=== PATIENT | male | born 1965 | race Caucasian/White ===

== ENCOUNTER 2018-03-13 07:49 | Emergency (ER) | payer OTHER ==
[2018-03-13 08:06] VITALS: BP 117/86
--- NOTE | 2018-03-13 08:25 | UC ---
Upper Extremity HPI - HPI Summary HPI Summary: ratcheting a vehicle when developed pain in the left biceps acutely. Pain has persisted despite resting overnight - History of Current Complaint Chief Complaint: UCUpperExtremity Stated Complaint: ARM INJURY Time Seen by Provider: 03/13/18 08:19 Hx Obtained From: Patient Onset/Duration: Sudden Onset Severity Initially: Moderate Severity Currently: Moderate Pain Intensity: 5 Character: Sharp Aggravating Factor(s): Movement, Extension - Allergies/Home Medications Allergies/Adverse Reactions: Allergies Allergy/AdvReac Type Severity Reaction Status Date / Time No Known Allergies Allergy Verified 03/13/18 08:03 PMH/Surg Hx/FS Hx/Imm Hx Previously Healthy: Yes - Surgical History Surgical History: None - Family History Known Family History: Positive: None - Social History Alcohol Use: None Substance Use Type: None Smoking Status (MU): Never Smoked Tobacco Review of Systems Constitutional: Negative Skin: Negative Eyes: Negative ENT: Negative Respiratory: Negative Cardiovascular: Negative Gastrointestinal: Negative Genitourinary: Negative Motor: Weakness - left arm Musculoskeletal: Other: - pain in the head of the biceps Is Patient Immunocompromised?: No All Other Systems Reviewed And Are Negative: Yes Physical Exam Triage Information Reviewed: Yes Appearance: Well-Appearing, Pain Distress Vital Signs: Initial Vital Signs Temp 37.0 C 03/13/18 08:00 Pulse 82 03/13/18 08:00 Resp 16 03/13/18 08:00 BP 117/86 03/13/18 08:00 Pulse Ox 99 03/13/18 08:00 Vital Signs Reviewed: Yes Musculoskeletal Exam: Other - distortion of the head of the biceps at the elbow , with pain , no ecchymosis Upper Extremity Course/Dx - Differential Dx/Diagnosis Provider Diagnoses: head of biceps muscle tear left Discharge - Sign-Out/Discharge Documenting (check all that apply): Patient Departure All imaging exams completed and their final reports reviewed: Yes - Discharge Plan Condition: Good Disposition: HOME Patient Education Materials: Tendon Rupture (ED) Referrals: Pj Cornejo MD [Primary Care Provider] - Gael Rodriguez MD [Medical Doctor] - Additional Instructions: ice elevation - Billing Disposition and Condition Condition: GOOD Disposition: Home
--- NOTE | 2018-03-13 08:43 | RAD ---
HISTORY: pain in the head of the biceps at the elbow COMPARISONS: None VIEWS: 2 , Frontal internal rotation and external rotation views of the left humerus FINDINGS: BONE DENSITY: Normal. BONES: There is no displaced fracture. JOINTS: There is no arthropathy. ALIGNMENT: There is no dislocation. SOFT TISSUES: Unremarkable. OTHER FINDINGS: None. IMPRESSION: NO ACUTE OSSEOUS INJURY. IF SYMPTOMS PERSIST, RECOMMEND REPEAT IMAGING.
== END 2018-03-13 09:04 | disposition home or self-care (01) ==
LOC: UCEAST 07:49
DX: S46.212A Strain of muscle, fascia and tendon of other parts of biceps, left arm, initial encounter (principal); X50.9XXA Other and unspecified overexertion or strenuous movements or postures, initial encounter; Y93.89 Activity, other specified; Y92.9 Unspecified place or not applicable
CPT/HCPCS: 99211; G0463

== ENCOUNTER 2019-07-06 18:09 | Emergency (ER) | payer BC, OTHER ==
--- OUTSIDE RECORDS SUMMARY | 2019-07-06 18:16 | XMS REPORT ---
:1965 Author Organization [facility] Care Team Providers Name Role Phone Jaylyn Petit Primary Care Physician Unavailable Allergies, Adverse Reactions, Alerts Allergy Code CodeSystem Reaction Severity Criticality Status Start Substance Date Moderate Medications Medication Medication Medication Start Stop Route Dose Status Fill Code CodeSystem Date Date Instructions RxNorm Relevant diagnostic tests/laboratory data Narrative No Information Procedures Procedure Code CodeSystem Target Date of Status Service Device Device Device Name Site Procedure Delivery Code Name UID Location Psychotherap [id number] SNOMED-CT () 2019-03-21 complete Mental y, 45 04 d Health- minutes with [facility] patient [address], [id number] [facility] [id number] SNOMED-CT () 2019-04-21 complete Mental psychotherap 8 d Health- y (other [facility] than of a [facility] multiple-[address], [id number] [id number] SNOMED-CT () 2019-01-22 complete Mental d Health- [address], [id number] SNOMED-CT () 2019-01-07 complete Mental d Health- [address], [id number] [phone] Encounters/Encounter Diagnoses Encounter Encounter Diagnosis Diagnosis Diagnosis Date of Service Name Code Code Name CodeSystem Diagnosis Delivery Location Non-Billable 74790 SNOMED-CT 2019-04-28 [facility] , , , Vital Signs No Information Social History Element Description Description Start End Code CodeSystem AdditionalInfo Date Date SexAssignedAtBirth Male 1966-0 M AdministrativeGender 19 Hospital Discharge Instructions Reason For Referral Medical Equipment FDA Assessments
--- OUTSIDE RECORDS SUMMARY | 2019-07-06 18:16 | XMS REPORT ---
:1965 Author Organization [facility] Care Team Providers Name Role Phone Jaylyn [...] Procedure Delivery Code Name UID Location Psychotherap [id number] SNOMED-CT () 2019-03-21 complete Mental y, 45 04 d Health- minutes with [place] patient [address], [id number] Group [id number] SNOMED-CT () 2019-04-21 complete Mental psychotherap 8 d Health- y (other [place] than of a [address]) [place], [place], [phone] Group [id number] SNOMED-CT () 2019-05-12 complete Mental psychotherap 8 d Health- y (other [place] than of a [address] group) [place], [place], [id number] [phone] Group [id number] SNOMED-CT () 2019-05-19 complete Mental psychotherap 8 d Health- y (other [place] than of a [address] group) [place], [place], [id number] Group [id number] SNOMED-CT () 2019-06-09 complete Mental psychotherap 8 d Health- y (other [place] than of a [address] group) [place], [place], [phone] SNOMED-CT () 2019-05-09 complete Mental d Health- [address], [id number] [phone] SNOMED-CT () 2019-01-22 complete Mental d Health[address], [id number] [phone] SNOMED-CT () 2019-01-07 complete Mental d Health[address], [id number] [phone] Encounters/Encounter Diagnoses Encounter Name Encounter Diagnosis Diagnosis Diagnosis Date of Service Code Code Name CodeSystem Diagnosis Delivery Location [facility] - 35440 SNOMED-CT 2019-06-09 Behavioral Group [facility] [address] [place] [address], [phone] Vital Signs No Information Social History Element Description Description Start End Code CodeSystem AdditionalInfo Date Date SexAssignedAtBirth Male 1966-0 M AdministrativeGender 4-19 Hospital Discharge Instructions Reason For Referral Medical Equipment FDA Assessments
--- OUTSIDE RECORDS SUMMARY | 2019-07-06 18:16 | XMS REPORT ---
:1965 Author Organization [facility] Care Team Providers Name Role [...] Procedure Delivery Code Name UID Location Psychotherap [id number] SNOMED-CT () 2019-03-21 complete Mental y, 45 04 d Health- minutes with [place] patient [address], [id number] Group [id number] SNOMED-CT () 2019-04-21 complete Mental psychotherap 8 d Health- y (other [place] than of a [address]) [place], [place], [phone] Group [id number] SNOMED-CT () 2019-05-12 complete Mental psychotherap 8 d Health- y (other [place] than of a [address]) [place], [place], [id number] [phone] SNOMED-CT () 2019-05-09 complete Mental d Health- [address], [phone] SNOMED-CT () 2019-01-22 complete Mental d Health- [address], [id number] [phone] SNOMED-CT () 2019-01-07 complete Mental d Health- [address], [id number] [phone] Encounters/Encounter Diagnoses Encounter Name Encounter Diagnosis Diagnosis Diagnosis Date of Service Code Code Name CodeSystem Diagnosis Delivery Location [facility] - 46241 SNOMED-CT 2019-05-19 [facility] , , , Vital Signs No Information Social History Element Description Description Start End Code CodeSystem AdditionalInfo Date Date SexAssignedAtBirth Male 1966-0 M AdministrativeGender 4-19 Hospital Discharge Instructions Reason For Referral Medical Equipment FDA Assessments
--- OUTSIDE RECORDS SUMMARY | 2019-07-06 18:16 | XMS REPORT ---
:1965 Author Organization [facility] Care Team Providers Name Role Phone TATYANA BECERRIL Primary Care Physician Unavailable Allergies, Adverse Reactions, Alerts Allergy Code CodeSystem Reaction Severity Criticality Status Start Substance Date Moderate Medications Medication Medication Medication Start Stop Route Dose Status Fill Code CodeSystem Date Date Instructions RxNorm Relevant diagnostic tests/laboratory data Narrative No Information Procedures Procedure Code CodeSystem Target Date of Status Service Device Device Device Name Site Procedure Delivery Code Name UID Location Psychotherap [id number] SNOMED-CT () 2019-03-21 complete Mental y, 45 04 d Health- minutes with [place] patient [address], [id number] Group [id number] SNOMED-CT () 2019-04-21 complete Mental psychotherap 8 d Health- y (other [place] than of a [address]) [place], [place], [id number] [phone] Group [id number] SNOMED-CT () 2019-05-12 complete Mental psychotherap 8 d Health- y (other [place] than of a [address] group) [place], [place], [phone] Group [id number] SNOMED-CT () 2019-05-19 complete Mental psychotherap 8 d Health- y (other [place] than of a [address] group) [place], [place], [id number] [phone] Group [id number] SNOMED-CT () 2019-06-09 complete Mental psychotherap 8 d Health- y (other [place] than of a [address] group) [place], [place], [id number] [phone] Group [id number] SNOMED-CT () 2019-06-16 complete Mental psychotherap 8 d Health- y (other [place] than of a [place] multiple-fam [address] [place] [address]) [place], [place], [phone] SNOMED-CT () 2019-05-09 complete Mental d Health- [address], [phone] SNOMED-CT () 2019-01-22 complete Mental d Health[address], [id number] [phone] SNOMED-CT () 2019-01-07 complete Mental d Health[address], [phone] Encounters/Encounter Diagnoses Encounter Name Encounter Diagnosis Diagnosis Diagnosis Date of Service Code Code Name CodeSystem Diagnosis Delivery Location Psychotherapy - 83912 SNOMED-CT 2019-06-16 [facility]al [facility] [address] [place] [address], [phone] Vital Signs No Information Social History Element Description Description Start End Code CodeSystem AdditionalInfo Date Date SexAssignedAtBirth Male 1966-0 M AdministrativeGender 4-19 Hospital Discharge Instructions Reason For Referral Medical Equipment FDA Assessments
[2019-07-06 18:24] VITALS: BP 121/103
[2019-07-06] MEDS ORDERED: Amoxicillin/Clavulanate TAB* 875 MG PO ONE (19:05)
--- NOTE | 2019-07-06 19:06 | UC ---
Bite Injury/Animal HPI - HPI Summary HPI Summary: About noon today he was bit on the right cheek by a dog. He does not feel that the dog was being aggressive but rather was trying to protect another dog. The dog is known and can be observed. The section plotter operator's report that the dog has had all of his shots. He decided to come in now because his face is getting a little red and swollen around the bite. - History of Current Complaint Chief Complaint: UCBiteInjury Stated Complaint: DOG BITE Time Seen by Provider: 07/06/19 18:55 Hx Obtained From: Patient Severity Currently: Mild Severity Initially: Mild Pain Intensity: 0 Onset/Duration: Sudden Onset Type of Bite: Pet Has Animal Been Immunized?: Yes Character: Puncture Aggravating Factor(s): Nothing Associated Signs And Symptoms: Positive: Swelling Hx of Bite: Provoked by: Animal Available for Observation: Yes Animal Control Notified: Yes - Allergies/Home Medications Allergies/Adverse Reactions: Allergies Allergy/AdvReac Type Severity Reaction Status Date / Time No Known Allergies Allergy Verified 03/13/18 08:03 PMH/Surg Hx/FS Hx/Imm Hx Previously Healthy: Yes - Surgical History Surgical History: None - Family History Known Family History: Positive: None - Social History Alcohol Use: None Substance Use Type: None Smoking Status (MU): Never Smoked Tobacco Review of Systems All Other Systems Reviewed And Are Negative: Yes Constitutional: Positive: Negative Skin: Positive: Other - To wound to the face Motor: Positive: Negative Neurovascular: Positive: Negative Musculoskeletal: Positive: Negative Neurological: Positive: Negative Physical Exam - Summary Physical Exam Summary: He is nontoxic in appearance with stable vitals. Triage Information Reviewed: Yes Appearance: Well-Appearing, No Pain Distress Vital Signs: Initial Vital Signs Temp 97.2 F 07/06/19 18:18 Pulse 105 07/06/19 18:18 Resp 16 07/06/19 18:18 BP 121/103 07/06/19 18:18 Pulse Ox 97 07/06/19 18:18 Vital Signs Reviewed: Yes ENT Exam: Normal Neck: Positive: No Lymphadenopathy Skin Exam: Other - He has a 3 mm puncture wound to his right lower face. It has some mild erythema around it. Procedures - Laceration/Wound Repair 1 Location: face Description: Linear Laceration/Wound Explored: clean Closure: Skin Adhesive Bite Injury Course/Dx - Course Course Of Treatment: Wound came together well with glue and he is not particularly concerned with cosmetics but more so with infection. - Differential Dx/Diagnosis Provider Diagnosis: Dog bite of cheek Discharge ED - Sign-Out/Discharge Documenting (check all that apply): Patient Departure All imaging exams completed and their final reports reviewed: No Studies - Discharge Plan Condition: Stable Disposition: HOME Prescriptions: Amoxicillin/Clavulanate TAB* [Augmentin TAB 875*] 875 mg PO BID #10 tab Patient Education Materials: Animal Bite (ED), Facial Laceration (ED) Referrals: Pj Cornejo MD [Primary Care Provider] - - Billing Disposition and Condition Condition: STABLE Disposition: Home
== END 2019-07-06 19:19 | disposition home or self-care (01) ==
LOC: UCEAST 18:09
DX: S01.451A Open bite of right cheek and temporomandibular area, initial encounter (principal); W54.0XXA Bitten by dog, initial encounter; Y92.9 Unspecified place or not applicable
CPT/HCPCS: 12011; 99212; A9270-GY; G0463